=== PATIENT | male | born 1985 | race Caucasian/White ===

== ENCOUNTER 2018-06-04 03:12 | Emergency (ER) | payer BC ==
[~2018-06-04] VITALS: Ht 170.2 cm; Wt 65.9 kg
[~2018-06-04 03:12] MED LIST: CEPHALEXIN500 M1 PO; ERYTHROMYCIN5 MG/G1 OP; LORTAB 7.5/5001 TAB PO; NEXIUM40 MG PO; NO HOME MEDICATIONS; NORCO 325 MG-51 TAB PO
[2018-06-04 03:18] VITALS: TEMP 98.1
[2018-06-04] MEDS ORDERED: PERIDEX (CHLOR480 ML MM (06:05)
[2018-06-04] MEDS ORDERED: AMOXICILLIN 8751 TAB PO (06:05)
[2018-06-04 06:15] VITALS: BP 157/103; PULSE 92
== END 2018-06-04 06:20 | disposition home or self-care (01) ==
LOC: COL.ER 03:12
DX: S02.2XXA Fracture of nasal bones, initial encounter for closed fracture (principal); S01.512A Laceration without foreign body of oral cavity, initial encounter; V19.9XXA Pedal cyclist (driver) (passenger) injured in unspecified traffic accident, initial encounter; Y92.410 Unspecified street and highway as the place of occurrence of the external cause